=== PATIENT | female | born 1985 | race Hispanic/Latino ===

== ENCOUNTER 2022-12-01 10:41 | Emergency (ER) | payer SELFPAY ==
[2022-12-01 11:38] LABS: Hemoglobin 12.1 g/dL (12.0-16.0); Mean Corpuscular HGB CONC 32.5 g/dL (32.0-36.0); Mean Corpuscular Hemoglobin 28.3 pg (27.0-31.0); Red Blood Cell (RBC) Count 4.29 mill/uL (4.20-5.40)
[2022-12-01 11:41] LABS: BHCG - Serum Negative (NEGATIVE); Pregs Control Background? CLEAR/WHITE (CLR/WHITE); Pregs Control Bar Appear? YES (CONTROL BAR)
[2022-12-01 11:53] LABS: ALT (SGPT) Less than 7 U/L (8-55); AST (SGOT) 13 U/L (5-34); Alkaline Phosphatase 55 U/L (40-110); Anion Gap 12 mmol/L (10-20); BUN (Urea Nitrogen) 10 mg/dL (7.0-18.7); Bilirubin, Total 0.4 mg/dL (0.2-1.2); Calc. Creatinine Clearance 0 mL/min (70-130); Calcium 8.9 mg/dL (7.8-10.44); Carbon Dioxide 22 mmol/L (22-29); Chloride 108 mmol/L (98-107); Estimated GFR 112; Globulin 3.1 g/dL (2.4-3.5); Glucose 98 mg/dL (70-105); Potassium 3.4 mmol/L (3.5-5.1); Protein, Total 7.1 g/dL (6.0-8.3); Sodium 139 mmol/L (136-145)
[2022-12-01 12:03] LABS: Eosinophils 4 % (0-10); Lymphocytes 50 % (21-51); MDiff Complete? YES; Mean Platelet Volume 7.7 fL (7.4-10.4); Monocytes 8 % (0-10); Neutrophil 38 % (42-75); Platelet Count 292 10x3/uL (130-400); Platelet Morphology Comment Appears Adequate; Vacuoles SLIGHT
[2022-12-01] MEDS ORDERED: Morphine 2 MG/ML VIAL ONE (12:40)
[2022-12-01] MEDS ORDERED: Ondansetron PF 4 MG/2 ML Vial ONE (12:40)
[2022-12-01] MEDS ORDERED: Iopamidol-370 76% 500 ML 1 ML ONE (15:53)
[2022-12-01 17:11] LABS: Chlamydia by PCR Not Detected (NotDetected); GC by PCR Not Detected (NotDetected)
== END 2022-12-01 14:39 | disposition home or self-care (01) ==
LOC: ERS 10:41
DX: B96.89 Other specified bacterial agents as the cause of diseases classified elsewhere (principal); R11.2 Nausea with vomiting, unspecified
CPT/HCPCS: 36415; 74177; 80053; 83605; 84703; 85025; 87480; 87491; 87510; 87591; 87660; 96361; 96374; 96375; J2272; J2405; Q9967